=== PATIENT | female | born 1935 | race Caucasian/White ===

== ENCOUNTER 2017-04-19 18:30 | Emergency (ER) | payer OTHER ==
[~2017-04-19] VITALS: Ht 162.6 cm; Wt 54.3 kg
[~2017-04-19 18:30] MED LIST: ADVIL200 MG PO; ASPIR-LOW81 MG PO; CHROMIUM400 MCG PO; CO Q-1010 MG PO; CYANOCOBALAM1000 MCG PO; DAILY VALUE1 EACH PO; DOCUSATE SODIU100 MG PO; EFFEXOR75 MG PO; GLIMEPIRIDE2 MG; GLIMEPIRIDE2 MG PO; LISINOPRIL2.5 MG PO; LOPRESSOR25 MG PO; LORAZEPAM0.5 MG; LORAZEPAM0.5 MG PO; LORAZEPAM1 MG PO; METFORMIN HCL1000 MG PO; NITROSTAT0.4 MG SL; PLAVIX75 MG PO; PRAVASTATIN SOD40 MG PO; PRESERVISION T1 EACH PO; PROTONIX20 MG PO; SERTRALINE HCL50 MG PO; TYLENOL REGULA325 MG PO; VITAMIN D1000 INTUN PO; VITAMIN D31000 UNIT PO; [UNRECOGNIZED DRUG - OTHER] PO
[2017-04-19 19:24] LABS: HEMATOCRIT 35.9 % (36.0-46.0); MCH 31.2 PG (29.0-34.0); MCHC 33.4 G/DL (30.0-36.0); MCV 93.2 FL (83-99); MEAN PLAT.VOLUME 9.4 uM^3 (9.5-12.4); PLATELET COUNT 265 K/uL (156-360); RBC DIS.WIDTH-CV 13.1 % (11.8-14.6); RBC DIS.WIDTH-SD 44.4 % (39-53); RED BLOOD COUNT 3.85 M/uL (3.80-5.20); WHITE BLOOD COUNT 9.8 K/uL (4.1-10.2)
[2017-04-19 19:40] LABS: CHLORIDE 105 mEq/L (99-109); POTASSIUM 4.6 mEq/L (3.7-5.4); SODIUM 140 mEq/L (136-147)
[2017-04-19 19:42] LABS: GLUCOSE 136 mg/dL (70-99)
[2017-04-19 19:43] LABS: ANION GAP 10 MEQ/L (2-14)
[2017-04-19 19:46] LABS: GFR ESTIMATE (CALCULATED) > 59 mL/min/
[2017-04-19 19:47] LABS: UREA NITROGEN (BUN) 22 mg/dL (9-23)
[2017-04-19] MEDS ORDERED: ROXICODONE5 MG PO (21:55)
[2017-04-19 22:12] VITALS: BP 135/64
== END 2017-04-19 22:48 | disposition home or self-care (01) ==
LOC: EME 18:30
PROVIDERS: Emergency Medicine
DX: S42.292A Other displaced fracture of upper end of left humerus, initial encounter for closed fracture (principal); S42.252A Displaced fracture of greater tuberosity of left humerus, initial encounter for closed fracture; S20.212A Contusion of left front wall of thorax, initial encounter; S00.01XA Abrasion of scalp, initial encounter; M54.2 Cervicalgia; R10.12 Left upper quadrant pain; W18.30XA Fall on same level, unspecified, initial encounter; R42 Dizziness and giddiness; K57.30 Diverticulosis of large intestine without perforation or abscess without bleeding; E11.9 Type 2 diabetes mellitus without complications; Z79.84 Long term (current) use of oral hypoglycemic drugs; Z95.5 Presence of coronary angioplasty implant and graft
CPT/HCPCS: 70450; 71260; 73030; 74177; 80048; 85027; 93005; 99281; 99285; J2270; J2405; J3010; J7120

== ENCOUNTER 2017-04-23 13:28 | Inpatient (IN) | payer OTHER ==
[~2017-04-23] VITALS: Ht 162.6 cm; Wt 54.8 kg
[~2017-04-23 13:28] MED LIST changes: +ROXICODONE5 MG PO
[2017-04-23 14:20] LABS: HEMATOCRIT 30.7 % (36.0-46.0); MCHC 33.2 G/DL (30.0-36.0); MCV 93.3 FL (83-99); MEAN PLAT.VOLUME 9.6 uM^3 (9.5-12.4); PLATELET COUNT 250 K/uL (156-360); RBC DIS.WIDTH-CV 12.6 % (11.8-14.6); RBC DIS.WIDTH-SD 43.2 % (39-53); RED BLOOD COUNT 3.29 M/uL (3.80-5.20); WHITE BLOOD COUNT 6.4 K/uL (4.1-10.2)
[2017-04-23 14:30] LABS: CHLORIDE 104 mEq/L (99-109)
[2017-04-23 14:31] LABS: POTASSIUM 4.4 mEq/L (3.7-5.4); SODIUM 138 mEq/L (136-147)
[2017-04-23 14:32] LABS: GLUCOSE 97 mg/dL (70-99)
[2017-04-23 14:34] LABS: ANION GAP 11 MEQ/L (2-14)
[2017-04-23 14:36] LABS: GFR ESTIMATE (CALCULATED) 56 mL/min/
[2017-04-23 14:37] LABS: UREA NITROGEN (BUN) 21 mg/dL (9-23)
[2017-04-23 14:40] LABS: TROP-I INTERPRETATION NEGATIVE; TROPONIN-I < 0.01 ng/mL (0.0-0.30)
[2017-04-23 16:49] LABS: ADD MIUA? YES; BILIRUBIN NEGATIVE; BLOOD SMALL; COLOR YELLOW ((YELLOW)); GLUCOSE (STRIP) NEGATIVE; KETONES NEGATIVE; LEUKOCYTES LARGE; NITRITE POSITIVE; PROTEIN (STRIP) NEGATIVE; UROBILINOGEN 0.2 MG/DL (0.2-1.0)
[2017-04-23 16:54] LABS: BACTERIA RARE /HPF; EPITHELIAL CELLS 1+ /HPF; MUCUS TRACE /LPF; UCUL ADDED? YES; WHITE BLOOD CELLS TNTC /HPF (0-5)
[2017-04-23] MEDS ORDERED: LO-DOSE ASPIRIN81 M2 PO (20:59)
[2017-04-23] MEDS ORDERED: CYMBALTA60 MG PO (21:00)
[2017-04-23] MEDS ORDERED: MIRTAZAPINE7.5 MG PO (21:00)
[2017-04-23 22:49] VITALS: BP 136/70
[2017-04-24] VITALS (7 sets, daily range): BP systolic 108–172; BP diastolic 55–80
[2017-04-24 05:50] LABS: HEMATOCRIT 30.6 % (36.0-46.0); MCHC 32.7 G/DL (30.0-36.0); MCV 94.7 FL (83-99); MEAN PLAT.VOLUME 9.8 uM^3 (9.5-12.4); PLATELET COUNT 263 K/uL (156-360); RBC DIS.WIDTH-CV 12.4 % (11.8-14.6); RED BLOOD COUNT 3.23 M/uL (3.80-5.20); WHITE BLOOD COUNT 7.7 K/uL (4.1-10.2)
[2017-04-24 06:58] LABS: ALKALINE PHOSPHATASE 70 IU/L (3-129); ANION GAP 10 MEQ/L (2-14); CHLORIDE 108 MEQ/L (99-109); GFR ESTIMATE (CALCULATED) > 59 mL/min/; POTASSIUM 4.3 MEQ/L (3.7-5.4); SAMPLE HEMOLYSIS CHECK 0; SAMPLE ICTERIC CHECK 0; SAMPLE LIPEMIA CHECK 0; SODIUM 143 MEQ/L (136-147); TOTAL BILIRUBIN 0.5 MG/DL (0.0-1.0); UREA NITROGEN (BUN) 15 mg/dL (9-23)
[2017-04-24 07:04] LABS: GLUCOSE 152 mg/dL (70-99)
[2017-04-24 22:59] LABS: POINT-OF-CARE METER ID UU13113831
[2017-04-25 05:47] LABS: EOSINOPHIL (%) 1.5 % (0-5); EOSINOPHIL COUNT 0.1 K/uL (0-0.3); HEMATOCRIT 27.5 % (36.0-46.0); IMMATURE GRANULOCYTE (%) 0.5 % (0.0-0.7); INSTRUMENT ABS NEUTROPHIL CT 3.3 K/uL; LYMPHOCYTE COUNT 1.9 K/uL (1.0-2.8); MCHC 33.5 G/DL (30.0-36.0); MCV 92.6 FL (83-99); MEAN PLAT.VOLUME 9.6 uM^3 (9.5-12.4); MONOCYTE COUNT 0.7 K/uL (0-0.8); NEUTROPHIL (%) 54.8 % (45-76); NEUTROPHIL COUNT 3.3 K/uL (1.8-6.4); PLATELET COUNT 252 K/uL (156-360); RBC DIS.WIDTH-CV 12.4 % (11.8-14.6); RBC DIS.WIDTH-SD 42.3 % (39-53); RED BLOOD COUNT 2.97 M/uL (3.80-5.20)
[2017-04-25 06:48] LABS: ANION GAP 9 MEQ/L (2-14); CHLORIDE 107 MEQ/L (99-109); GFR ESTIMATE (CALCULATED) > 59 mL/min/; POTASSIUM 4.3 MEQ/L (3.7-5.4); SAMPLE HEMOLYSIS CHECK 0; SAMPLE ICTERIC CHECK 0; SAMPLE LIPEMIA CHECK 0; SODIUM 140 MEQ/L (136-147); UREA NITROGEN (BUN) 16 mg/dL (9-23)
[2017-04-25 06:49] LABS: GLUCOSE 107 mg/dL (70-99)
[2017-04-25 07:20] VITALS: BP 120/67
[2017-04-25 10:45] VITALS: BP 125/58
[2017-04-25 12:15] LABS: POINT-OF-CARE METER ID UU13113700
[2017-04-25 15:28] VITALS: BP 117/56
[2017-04-25 15:42] LABS: BICARBONATE 22.1 mEq/L (22-26); CARBOXY HGB 1.4 % (0-5); COMMENTS - BLOOD GASES C+; METHEMOGLOBIN 1.1 % (0-1.5); PCO2 34 mm Hg (35-45); PO2 81 mm Hg (80-100); SITE RR; pH 7.42 (7.35-7.45)
[2017-04-25 15:43] LABS: DEVICE ROOM AIR; FI02 21 %; TOTAL RESP RATE 18 resp/min
[2017-04-25 17:19] LABS: POINT-OF-CARE METER ID UU13113700
[2017-04-25 20:05] VITALS: BP 133/64
[2017-04-25 21:13] LABS: AMPHETAMINES QUANT VALUE 0 NG/ML; BARBITUATES QUANT VALUE 0 NG/ML; BENZODIAZEPINES QUANT VALUE 0 NG/ML; BENZODIAZEPINES, URINE SCREEN Negative (200 ng/mL); MARIJUANA QUANT VALUE 0 NG/ML; PHENCYCLIDINE QUANT VALUE 0 NG/ML
[2017-04-25 23:51] VITALS: BP 117/62
[2017-04-26 04:50] VITALS: BP 132/63
[2017-04-26 05:34] LABS: EOSINOPHIL (%) 1.8 % (0-5); EOSINOPHIL COUNT 0.1 K/uL (0-0.3); HEMATOCRIT 27.5 % (36.0-46.0); IMMATURE GRANULOCYTE (%) 0.6 % (0.0-0.7); INSTRUMENT ABS NEUTROPHIL CT 3.4 K/uL; LYMPHOCYTE COUNT 1.9 K/uL (1.0-2.8); MCH 30.8 PG (29.0-34.0); MCHC 33.1 G/DL (30.0-36.0); MCV 93.2 FL (83-99); MONOCYTE (%) 12.3 % (3-12); MONOCYTE COUNT 0.8 K/uL (0-0.8); NEUTROPHIL (%) 54.5 % (45-76); NEUTROPHIL COUNT 3.4 K/uL (1.8-6.4); PLATELET COUNT 254 K/uL (156-360); RBC DIS.WIDTH-CV 12.5 % (11.8-14.6); RBC DIS.WIDTH-SD 42.5 % (39-53); RED BLOOD COUNT 2.95 M/uL (3.80-5.20); WHITE BLOOD COUNT 6.2 K/uL (4.1-10.2)
[2017-04-26 05:58] LABS: ANION GAP 7 MEQ/L (2-14); CHLORIDE 105 MEQ/L (99-109); GFR ESTIMATE (CALCULATED) > 59 mL/min/; GLUCOSE 98 mg/dL (70-99); POTASSIUM 4.4 MEQ/L (3.7-5.4); SAMPLE HEMOLYSIS CHECK 0; SAMPLE ICTERIC CHECK 0; SAMPLE LIPEMIA CHECK 0; SODIUM 138 MEQ/L (136-147); UREA NITROGEN (BUN) 21 mg/dL (9-23)
[2017-04-26 07:46] VITALS: BP 140/67
[2017-04-26 08:18] LABS: POINT-OF-CARE METER ID UU13113700
[2017-04-26 10:56] VITALS: BP 131/61; BP 31/61
[2017-04-26 12:06] LABS: POINT-OF-CARE METER ID UU13113700
== END 2017-04-26 17:02 | disposition home health service (06) | DRG 72 ==
LOC: EME 13:28 → 5WEST 20:53 → EDOF 20:53 → ENRESERV 20:54 → 5WEST 22:25 → CANRESERV 04-24 14:22 → ENRESERV 04-24 14:22 → 5WEST 04-26 17:02
PROVIDERS: Emergency Medicine; Internal Medicine; Physician Assistant
DX: G93.41 Metabolic encephalopathy (principal); T43.025A Adverse effect of tetracyclic antidepressants, initial encounter; T40.2X5A Adverse effect of other opioids, initial encounter; T42.4X5A Adverse effect of benzodiazepines, initial encounter; J44.9 Chronic obstructive pulmonary disease, unspecified; I10 Essential (primary) hypertension; E11.9 Type 2 diabetes mellitus without complications; F39 Unspecified mood [affective] disorder; E78.5 Hyperlipidemia, unspecified; I25.10 Atherosclerotic heart disease of native coronary artery without angina pectoris; F41.9 Anxiety disorder, unspecified; R29.6 Repeated falls; Z79.82 Long term (current) use of aspirin; Z79.84 Long term (current) use of oral hypoglycemic drugs; Z95.5 Presence of coronary angioplasty implant and graft; S42.212D Unspecified displaced fracture of surgical neck of left humerus, subsequent encounter for fracture with routine healing; W19.XXXD Unspecified fall, subsequent encounter
CPT/HCPCS: 36415; 36600; 70450; 70551; 71010; 80048; 80053; 80306 90; 81003; 82140; 82565; 82607; 82803; 82948; 84443; 84484; 84520; 85025; 85027; 87077; 87086; 87186; 92610 GN; 93005; 97530 GO; 99281; 99285; G0378; G8978 GP CJ; G8979 GP CI; G8996 GN CI; G8997 GN CI; G8998 GN CI; J0696; J1650; J1815; J1885; J7050

== ENCOUNTER 2017-05-27 23:21 | Observation (INO) | payer OTHER ==
[~2017-05-27] VITALS: Ht 162.6 cm; Wt 52.7 kg
[~2017-05-27 23:21] MED LIST changes: +CYMBALTA60 MG PO; +LO-DOSE ASPIRIN81 M2 PO; +MIRTAZAPINE7.5 MG PO
[2017-05-28 06:07] LABS: HEMATOCRIT 37.9 % (36.0-46.0)
[2017-05-28] MEDS ORDERED: ARICEPT5 MG PO (06:39)
[2017-05-28 06:41] VITALS: BP 140/62
[2017-05-28 06:45] LABS: POINT-OF-CARE METER ID UU14174212
[2017-05-28 11:49] LABS: POINT-OF-CARE METER ID UU13113675
[2017-05-28 13:49] VITALS: BP 103/55
[2017-05-28 17:09] LABS: POINT-OF-CARE METER ID UU14162508
[2017-05-28 19:00] VITALS: BP 96/52
[2017-05-28 21:47] LABS: POINT-OF-CARE METER ID UU14162508
[2017-05-28 23:50] VITALS: BP 99/54
[2017-05-29 01:36] VITALS: BP 121/73
[2017-05-29 03:10] VITALS: BP 136/65
[2017-05-29 06:46] LABS: POINT-OF-CARE METER ID UU14208750
[2017-05-29 07:50] VITALS: BP 118/59
[2017-05-29] MEDS ORDERED: BENADRYL25 MG PO (10:36)
[2017-05-29] MEDS ORDERED: HYDROCODON-ACE1 EAC7 PO (10:37)
[2017-05-29 11:22] VITALS: BP 135/60
[2017-05-29 11:46] LABS: POINT-OF-CARE METER ID UU14208750
== END 2017-05-29 11:58 | disposition home or self-care (01) ==
LOC: ENRESERV 23:21 → 2SOUTH 05-28 05:41 → 2EAST 05-28 05:41 → 2SOUTH 05-28 05:41 → CANRESERV 05-28 09:08 → ENRESERV 05-28 09:08 → SDC 05-28 09:41 → EDSTATUS 05-28 11:29 → 2SOUTH 05-28 11:32 → ENRESERV 05-28 12:04 → 2EAST 05-28 13:47
PROVIDERS: Orthopaedic Surgery
PROC: 0PSG04Z Reposition Left Humeral Shaft with Internal Fixation Device, Open Approach (ICD-10-PCS; principal; 2017-05-28)
DX: S42.232A 3-part fracture of surgical neck of left humerus, initial encounter for closed fracture (principal); E11.9 Type 2 diabetes mellitus without complications; I25.10 Atherosclerotic heart disease of native coronary artery without angina pectoris; Z95.5 Presence of coronary angioplasty implant and graft; F03.90 Unspecified dementia, unspecified severity, without behavioral disturbance, psychotic disturbance, mood disturbance, and anxiety; F41.9 Anxiety disorder, unspecified; K21.9 Gastro-esophageal reflux disease without esophagitis; F33.1 Major depressive disorder, recurrent, moderate; Z79.82 Long term (current) use of aspirin; Z79.84 Long term (current) use of oral hypoglycemic drugs; Z82.49 Family history of ischemic heart disease and other diseases of the circulatory system; Z88.8 Allergy status to other drugs, medicaments and biological substances
CPT/HCPCS: 73030; 76000; 82948; 85014; 85018; 94799; C1713; G0378; J0330; J0690; J1100; J2405; J2710; J2795; J3010